=== PATIENT | female | born 1945 | race Caucasian/White ===

== ENCOUNTER 2016-12-03 11:57 | Outpatient (CLI) | payer MEDICARE, BC | END 2016-12-03 11:58 | disposition home or self-care (01) | DX: Z12.31 Encounter for screening mammogram for malignant neoplasm of breast (principal) ==

== ENCOUNTER 2018-01-18 15:41 | Outpatient (CLI) | payer MEDICARE, BC ==
--- NOTE | 2018-01-20 16:03 | Mammography Report ---
DIGITAL SCREENING MAMMOGRAM: 01/18/2018 CLINICAL INDICATION: A 72-year-old nulliparous patient, for screening. COMPARISON: 11/2016, 10/2015, 09/2013, 10/2011. TECHNIQUE: Routine CC and MLO projections were obtained of the breasts. Bilateral laterally exaggerated craniocaudal views. FINDINGS: The breasts demonstrate heterogeneously dense fibroglandular parenchyma bilaterally. Punctate, typically benign calcifications are present. No suspicious masses, clustered microcalcifications, or regions of architectural distortion are identified. IMPRESSION: BENIGN FINDINGS. RECOMMENDATION: ROUTINE ANNUAL SCREENING UNLESS OTHERWISE CLINICALLY INDICATED. BIRADS CATEGORY 2-BENIGN FINDINGS. STANDARD QUALIFYING STATEMENTS: 1. This examination was reviewed with the aid of Computer-Aided Detection (CAD). 2. A negative or benign imaging report should not delay biopsy if clinically suspicious findings are present. Consider surgical consultation if warranted. More than 5% of cancers are not identified by imaging. 3. Dense breasts may obscure an underlying neoplasm. TD: 01/20/2018 16:02
== END 2018-01-18 15:42 | disposition home or self-care (01) ==
LOC: DI.S 15:41
PROVIDERS: ATTEND Family Medicine
DX: Z12.31 Encounter for screening mammogram for malignant neoplasm of breast (principal)
CPT/HCPCS: 77067

== ENCOUNTER 2018-05-21 14:13 | Outpatient (CLI) | payer MEDICARE, BC ==
--- NOTE | 2018-05-21 14:46 | XRAY Report ---
Procedure Date: 05/21/2018 Accession Number: [id number] / [id number] Procedure: XRS - Shoulder 2 View LT CPT Code: FULL RESULT: EXAM: Shoulder 2 View LT DATE: 05/21/2018 2:27 PM CLINICAL HISTORY: SHOULDER JOINT PAIN, LEFT COMPARISON: None. TECHNIQUE: 2 views. FINDINGS: Bones: No fracture or bone lesion. Joints: Minor degenerative change left acromioclavicular and glenohumeral joints. Slight inferior displacement of the left humeral head may be secondary to ligamentous laxity. Soft tissues: The included hemithorax is unremarkable. No soft tissue calcification. IMPRESSION: Mild left shoulder degenerative change without superimposed acute findings. [facility]
== END 2018-05-21 14:14 | disposition home or self-care (01) ==
LOC: DI.S 14:13
PROVIDERS: ATTEND Internal Medicine
DX: M19.012 Primary osteoarthritis, left shoulder (principal)

== ENCOUNTER 2018-06-14 12:32 | Outpatient (CLI) | payer MEDICARE, BC ==
--- NOTE | 2018-06-14 17:03 | MRI Report ---
Procedure Date: 06/14/2018 Accession Number: [id number] / [id number] Procedure: MRI - Shoulder LT W/O CPT Code: FULL RESULT: EXAM: LEFT SHOULDER MRI WITHOUT CONTRAST EXAM DATE: 06/14/2018 01:42 PM. CLINICAL HISTORY: Tear of left rotator cuff, unspecified tear extent. COMPARISON: X-ray 05/21/2018. TECHNIQUE: Multiplanar, multisequence T1-weighted and fluid-sensitive sequences of the shoulder without contrast. Other: None. FINDINGS: Acromioclavicular Region: The acromion is type II. Mild acromioclavicular joint osteoarthritis. There is fluid in the subacromial bursa. Glenohumeral Region: No subluxation. There is mild thinning of the hyaline cartilage with humeral head osteophyte formation. There is a moderate-sized joint effusion. Bone Marrow: No fracture, marrow edema or bone lesions. Labrum: The labrum is unremarkable on this nonarthrographic study. Musculature/Rotator Cuff: There is a complete rupture of the supraspinatus tendon with retraction of the tendon fibers. There is mild atrophy. There is moderate infraspinatus tendinosis with thinning and fraying of the entire tendon. There is mild subscapularis tendinosis. Biceps Tendon: High-grade partial-thickness tear of the long head of biceps. Other: The subcutaneous tissues are unremarkable. IMPRESSION: 1. Complete rupture of supraspinatus with mild atrophy. Tendinosis and high-grade fraying of the infraspinatus. Mild subscapularis tendinosis. 2. Tendinosis and high-grade partial-thickness tear of the long head of biceps. 3. Mild glenohumeral osteoarthritis with moderate-sized joint effusion. [facility] MUSCULOSKELETAL RADIOLOGY SECTION
== END 2018-06-14 12:33 | disposition home or self-care (01) ==
LOC: DI 12:32
PROVIDERS: ATTEND Orthopaedic Surgery
DX: M75.102 Unspecified rotator cuff tear or rupture of left shoulder, not specified as traumatic (principal); S46.112A Strain of muscle, fascia and tendon of long head of biceps, left arm, initial encounter; M19.012 Primary osteoarthritis, left shoulder; M25.412 Effusion, left shoulder

== ENCOUNTER 2019-08-03 09:25 | Day surgery (SDC) | payer MEDICARE, BC ==
[2019-08-03] MEDS ORDERED: fentaNYL 250 MCG/5 ML VIAL IVP ONE (09:26)
[2019-08-03] MEDS ORDERED: MIDAZOLAM 2 MG/2 ML VIAL IVP ONE (09:26)
[2019-08-03] MEDS ORDERED: LACTATED RINGERS 1,000 ML IV ONE (09:35)
[2019-08-03] MEDS ORDERED: CIPROFLOXACIN 400 MG/200 ML 200 ML IV ONE (09:43)
[2019-08-03 12:01] VITALS: BP 116/90
== END 2019-08-03 09:26 | disposition home or self-care (01) ==
LOC: SDS 09:25
PROVIDERS: ATTEND Surgery
PROC: 0DJD8ZZ Inspection of Lower Intestinal Tract, Via Natural or Artificial Opening Endoscopic (ICD-10-PCS; principal; 2019-08-03 10:45)
DX: Z12.11 Encounter for screening for malignant neoplasm of colon (principal); K57.30 Diverticulosis of large intestine without perforation or abscess without bleeding; Z86.010 Personal history of colon polyps; Z80.0 Family history of malignant neoplasm of digestive organs; K64.8 Other hemorrhoids; Z87.891 Personal history of nicotine dependence; Z86.19 Personal history of other infectious and parasitic diseases
CPT/HCPCS: G0105; J7120

== ENCOUNTER 2019-08-11 14:56 | Outpatient (CLI) | payer MEDICARE, BC ==
--- NOTE | 2019-08-15 17:56 | Mammography Report ---
Reason: SCREENING MAMMO Procedure Date: 08/11/2019 Accession Number: [id number] / [id number] Procedure: NELLY - Screening Mammo w/Nic CPT Code: FULL RESULT: EXAM: Screening Mammo w/Nic DATE: 08/11/2019 3:33 PM CLINICAL HISTORY: Nulliparous patient for routine screening. TECHNIQUE: (B) - Bilateral CC and MLO views were obtained. COMPARISON: 01/18/2018, 12/03/2016, 11/16/2015 and 10/26/2013 PARENCHYMAL PATTERN: (D) - The breasts demonstrate heterogeneously dense fibroglandular parenchyma bilaterally. FINDINGS: No significant interval change. There are no suspicious masses, calcifications, or areas of distortion. A few scattered benign-appearing calcifications are stable. IMPRESSION: Negative examination. BI-RADS category 1. RECOMMENDATION: (ANNUAL) - Recommend routine annual screening mammography. BI-RADS CATEGORY: (1) - Negative. STANDARD QUALIFYING STATEMENTS: 1. This examination was not reviewed with the aid of Computer-Aided Detection (CAD). 2. A negative or benign imaging report should not preclude biopsy if clinically suspicious findings are present. 3. Dense breasts may obscure an underlying neoplasm. 4. This examination was reviewed with the aid of 3D breast imaging (tomosynthesis).
== END 2019-08-11 14:57 | disposition home or self-care (01) ==
LOC: DI 14:56
DX: Z12.31 Encounter for screening mammogram for malignant neoplasm of breast (principal)
CPT/HCPCS: 77063; 77067

== ENCOUNTER 2021-09-25 08:00 | Outpatient (CLI) | payer MEDICARE, BC ==
[2021-09-25 15:27] LABS: BASOPHILS % (AUTO) 0.3 %; EOSINOPHILS % (AUTO) 0.1 %; HGB - HEMOGLOBIN 11.7 g/dL (12.0-16.0); LYMPHOCYTES # (AUTO) 1.1 10^3/uL (1.5-3.5); LYMPHOCYTES % (AUTO) 12.2 %; MEAN CORPUSCULAR HEMOGLOBIN 30.5 pg (27.0-31.0); MEAN CORPUSCULAR HGB CONC 32.5 g/dL (32.0-36.0); MEAN PLATELET VOLUME 10.5 fL (7.9-10.8); MONOCYTES # (AUTO) 0.7 10^3/uL (0.0-1.0); MONOCYTES % (AUTO) 8.1 %; NEUTROPHILS # (AUTO) 6.9 10^3/uL (1.5-6.6); NEUTROPHILS % (AUTO) 79.2 %; PLT - PLATELET COUNT 217 10^3/uL (130-450); RED BLOOD COUNT 3.83 10^6/uL (4.20-5.40); RED CELL DISTRIBUTION WIDTH 12.7 % (12.0-15.0); WHITE BLOOD COUNT 8.7 x10^3/uL (4.8-10.8)
[2021-09-25 15:49] LABS: ALBUMIN/GLOBULIN RATIO 1.6 (1.0-2.2); BILIRUBIN,TOTAL 0.7 mg/dL (0.2-1.0); CREATININE 0.5 mg/dL (0.4-1.0); POTASSIUM 3.8 mmol/L (3.5-5.0); TOTAL PROTEIN 6.5 g/dL (6.7-8.2)
== END 2021-09-25 23:59 | disposition home or self-care (01) ==
LOC: LAB.S 08:00
PROVIDERS: ATTEND Emergency Medicine
DX: M10.9 Gout, unspecified (principal)
CPT/HCPCS: 36415; 80053; 84550; 85025

== ENCOUNTER 2021-11-17 12:02 | Outpatient (CLI) | payer MEDICARE, BC ==
--- NOTE | 2021-11-17 13:16 | XRAY Report ---
PROCEDURE: Hand 3 View LT INDICATIONS: SPRAIN OF INTERPHALANGEAL JOINT OF LEFT LITTLE FIN TECHNIQUE: 3 views of the hand(s) acquired. COMPARISON: None FINDINGS: Bones: No fractures or dislocations. No suspicious bony lesions. Degenerative changes of the left wrist with degenerative changes of the first carpometacarpal joint and interphalangeal joints consist ent with osteoarthritis. There are calcifications in the triangular fibrocartilage consistent with ch ondrocalcinosis. There is no oblique fracture of the proximal phalanx of the little finger. Soft tissues: No suspicious soft tissue calcifications. IMPRESSION: 1. Oblique fracture of the proximal phalanx of the little finger. 2. Degenerative changes consistent with osteoarthritis of the interphalangeal joints and first carpom etacarpal joint. 3. Chondrocalcinosis Reviewed by: Kulwinder Cameron on 11/17/2021 12:14 PM [facility] Approved by: Kulwinder Cameron on 11/17/2021 12:14 PM [facility] Station ID: [id number]
== END 2021-11-17 12:03 | disposition home or self-care (01) ==
LOC: DI.S 12:02
PROVIDERS: ATTEND Emergency Medicine
DX: S63.637A Sprain of interphalangeal joint of left little finger, initial encounter (principal); S62.647A Nondisplaced fracture of proximal phalanx of left little finger, initial encounter for closed fracture; M19.042 Primary osteoarthritis, left hand; M11.242 Other chondrocalcinosis, left hand

== ENCOUNTER 2023-06-26 07:00 | Outpatient (CLI) | payer MEDICARE, BC ==
--- NOTE | 2023-06-26 14:13 | XRAY Report ---
PROCEDURE: Chest 2 View X-Ray INDICATIONS: COUGH/SORE THROAT TECHNIQUE: 2 views of the chest were acquired. COMPARISON: None. FINDINGS: Surgical changes and devices: None. Lungs and pleura: No pleural effusions or pneumothorax. Lungs are clear. Mediastinum: Mediastinal contours appear normal. Heart size is normal. Bones and chest wall: No suspicious bony lesions. Overlying soft tissues appear unremarkable. IMPRESSION: No acute cardiopulmonary process. Reviewed by: Khari Smith MD on 06/26/2023 2:11 PM PDT Approved by: Khari Smith MD on 06/26/2023 2:11 PM PDT Station ID: [id number]
== END 2023-06-26 23:59 | disposition home or self-care (01) ==
LOC: DI.S 07:00
PROVIDERS: ATTEND Registered Nurse
DX: R05.1 Acute cough (principal); J02.9 Acute pharyngitis, unspecified
CPT/HCPCS: 87070

== ENCOUNTER 2023-07-20 14:38 | Outpatient (CLI) | payer MEDICARE, BC ==
--- NOTE | 2023-07-21 11:05 | Ultrasound Report ---
PROCEDURE: Carotid Doppler Complete INDICATIONS: NECK PAIN TECHNIQUE: Color and pulse Doppler interrogation was performed of both carotid systems, with image documentation and velocity measurements. COMPARISON: None. FINDINGS: Right side: Brachial blood pressure: 141/71 mm Hg. Common carotid artery peak systolic velocity: 74 cm/sec. Internal carotid artery peak systolic velocity: 111 cm/sec. Internal carotid artery end diastolic velocity: 26 cm/sec. External carotid artery peak systolic velocity: 104 cm/sec. ICA/CCA peak systolic ratio: 1.4 . Hall scale imaging description: No significant atherosclerotic plaque. Percent internal carotid artery stenosis: 0. Vertebral artery: Flow direction is antegrade. Left side: Brachial blood pressure: 143/69 mm Hg. Common carotid artery peak systolic velocity: 89 cm/sec. Internal carotid artery peak systolic velocity: 99 cm/sec. Internal carotid artery end diastolic velocity: 21 cm/sec. External carotid artery peak systolic velocity: 117 cm/sec. ICA/CCA peak systolic ratio: 1.1 . Hall scale imaging description: No significant atherosclerotic plaque. Percent internal carotid artery stenosis: 0. Vertebral artery: Flow direction is antegrade. IMPRESSION: Normal duplex carotid ultrasound without sclerotic plaque or ICA stenosis The estimate of stenosis included in the report of the imaging study was calculated using the [facility]-end orsed standards of carotid artery stenosis. Reviewed by: Andrea Collins MD on 07/21/2023 10:04 AM [facility] Approved by: Andrea Collins MD on 07/21/2023 10:04 AM [facility] Station ID: [id number]
== END 2023-07-20 14:39 | disposition home or self-care (01) ==
LOC: DI 14:38
PROVIDERS: ATTEND Registered Nurse
DX: M54.2 Cervicalgia (principal)
CPT/HCPCS: 93880

== ENCOUNTER 2023-09-28 08:56 | Outpatient (CLI) | payer MEDICARE, BC ==
--- NOTE | 2023-09-29 15:05 | Mammography Report ---
BILATERAL DIGITAL SCREENING MAMMOGRAM 3D/2D: 09/28/2023 CLINICAL: Routine screening. Comparison is made to exams dated: 08/11/2019 mammogram, 01/18/2018 mammogram, 12/03/2016 mammogram, mammogram, and 10/26/2013 mammogram - [facility]. There are scattered areas of fibroglandular density in both breasts (category b / 25%-50% glandular t issue). No significant masses, calcifications, or other findings are seen in either breast. IMPRESSION: NEGATIVE There is no mammographic evidence of malignancy. A 1 year screening mammogram is recommended. Based on the Tyrer Cuzick model (a risk assessment model) the patients lifetime risk is 3.7% and her 10 year risk is 0.0%. According to the ACR, ACS, and NCCN guidelines, an annual breast MRI exam donte g with mammogram is recommended if the patients lifetime risk is 20% or greater. This exam was interpreted at Station ID: [id number]. NOTE: For mammograms, a report in lay terms will be sent to the patient. Approximately 15% of breast malignancies will not be visualized mammographically. In the management of a palpable breast mass, a negative mammogram must not discourage biopsy of a clinically suspicious lesion. Electronically Signed By: Ely Quiñones M.D., PH.D eb/penrad:09/28/2023 19:35:54 letter sent: No_Letter ACR BI-RADS Category 1: Negative 3341F PARENCHYMAL PATTERN: (A) - The breast(s) demonstrate(s) scattered fibroglandular densities. BI-RADS CATEGORY: (1) - 1 Mammogram [id number] 1 year screening LATERALITY: (B)
== END 2023-09-28 08:57 | disposition home or self-care (01) ==
LOC: DI.S 08:56
DX: Z12.31 Encounter for screening mammogram for malignant neoplasm of breast (principal); R92.323 Mammographic fibroglandular density, bilateral breasts

== ENCOUNTER 2024-08-09 08:34 | Day surgery (SDC) | payer MEDICARE, BC ==
[2024-08-09] MEDS: LACTATED RINGERS 1,000 ML IV ONE ×2 (09:18→11:01)
--- NOTE | 2024-08-09 09:37 | ANESTHESIA ---
Pre-Anesthesia VS, & Labs - Diagnosis screening - Procedure colonoscopy Height: 5 ft 5 in Weight (kg): 58.2 kg Body Mass Index: 21.3 BMI Classification: Normal - NPO >8 hours Last Fluid Intake: am prep - Is Patient ?: No - Lab Results Lab results reviewed: Yes Home Medications and Allergies Alpha Lipoic Acid 100 mg PO DAILY 10/07/13 Lecithin 518 mg PO DAILY 10/07/13 [place]-3 Fatty Acids/Fish Oil [Fish Oil 1,000 mg Capsule] 1 cap PO BID 10/07/13 Resvera/Chrom/Gr.tea/Egcg/Dig3 [Resveratrol Diet Capsule] 1 each PO DAILY 10/07/13 Ubidecarenone [Coq-10] 30 mg PO DAILY 10/07/13 Calcium/Magnesium/Zinc [Azjafyc-Cetsusmdd-Qduv Tablet] 1 each PO DAILY 08/03/19 Multivitamin [Multiple Vitamins] 1 tab PO DAILY 08/03/19 Turmeric 400 mg PO DAILY 08/03/19 Allergies/Adverse Reactions: Allergies Allergy/AdvReac Type Severity Reaction Status Date / Time aspirin Allergy Edema Verified 08/09/24 09:11 latex Allergy Rash Verified 08/09/24 09:11 sodium lauryl sulfate Allergy Edema Verified 08/09/24 09:11 venom-honey bee Allergy Respiratory Verified 08/09/24 09:11 [bee venom (honey bee)] ibuprofen AdvReac Unknown Verified 08/09/24 09:11 iodine AdvReac Nausea Verified 08/09/24 09:11 shellfish derived AdvReac Nausea Verified 08/09/24 09:11 Anes History & Medical History - Anesthetic History Anesthesia Complications: reports: No previous complications Family history of Anesthesia Complications: Denies Family history of Malignant Hyperthermia: Denies - Medical History Cardiovascular: reports: None Pulmonary: reports: None Gastrointestinal: reports: Colon polyps Urinary: reports: None, Frequency Musculoskeletal: reports: Osteoarthritis, Osteopenia, Other Endocrine/Autoimmune: reports: Other Skin: reports: Eczema, Rosacea - Surgical History General: reports: Colonoscopy Eyes Ears Nose Throat (EENT): reports: Tonsil/Adenoidectomy Neurologic: Orthopedic: reports: Knee replacement, Other Exam General: Alert, Oriented x3, Cooperative Dental: WNL Mouth Openin Fingerbreadth Neck Mobility: Normal Mallampati classification: II Thyromental Distance: 4-6 cm Respiratory: Lungs clear, Normal breath sounds, No respiratory distress Cardiovascular: Regular rate Neurological: Normal speech Mental/Cognitive Status: Alert/Oriented X3, Normal for patient Cognitive Status: Within normal limits Plan Anesthesia Type: Total IV Consent for Procedure(s) Verified and Reviewed: Yes Code Status: Attempt Resuscitation ASA classification: 2-Mild systemic disease Is this case an emergency?: No
[2024-08-09] MEDS ORDERED: LIDOCAINE-MPF 2% 5 ML VIAL ONE (10:04)
[2024-08-09] MEDS ORDERED: PROPOFOL 500 MG/50 ML 500 MG/50 ML VIAL ONE (10:04)
[2024-08-09 11:31] VITALS: BP 117/55; O2SAT 100
--- NOTE | 2024-08-09 12:32 | ANESTHESIA POST OP EVALUATION ---
Anesthesia Post Eval - Post Anesthesia Eval Vitals: Last Vital Signs Temp 36.4 C L 08/09/24 11:17 Pulse 75 08/09/24 11:17 Resp 16 08/09/24 11:17 BP 117/55 L 08/09/24 11:17 Pulse Ox 100 08/09/24 11:17 O2 Flow Rate CV Function Including HR & BP: Stable Pain Control: Satisfactory Nausea & Vomiting: Negative Mental Status: Baseline Respiratory Status: Airway Patent Hydration Status: Satisfactory Anesthesia Complications: None
== END 2024-08-09 08:35 | disposition home or self-care (01) ==
LOC: SDS 08:34
PROVIDERS: ATTEND Surgery
PROC: 0DBN8ZZ Excision of Sigmoid Colon, Via Natural or Artificial Opening Endoscopic (ICD-10-PCS; 2024-08-09)
PROC: 0DBH8ZZ Excision of Cecum, Via Natural or Artificial Opening Endoscopic (ICD-10-PCS; principal; 2024-08-09 10:30)
DX: Z12.11 Encounter for screening for malignant neoplasm of colon (principal); D12.0 Benign neoplasm of cecum; D12.5 Benign neoplasm of sigmoid colon; K57.30 Diverticulosis of large intestine without perforation or abscess without bleeding
CPT/HCPCS: 45380; J7120